=== PATIENT | female | born 1965 | race Caucasian/White ===

== ENCOUNTER → 2019-04-24 | Outpatient (CLI) | payer BC ==
[~2019-04-24] MED LIST: NO MEDS
[2019-04-24 17:01] LABS: BASOPHILS % 0.8 % (0.0-2.0); HEMATOCRIT. 35.8 % (36.0-48.0); HEMOGLOBIN. 12.4 g/dL (12.0-16.0); LYMPHOCYTES % 39.3 % (20.0-50.0); MEAN CORPUSCULAR HEMOGLOBIN 29.2 pg (28.0-32.0); MEAN CORPUSCULAR VOLUME 84.4 fL (81.0-99.0); MONOCYTES % 7.2 % (2.0-8.0); NEUTROPHILS % 50.7 % (40.0-76.0); PLATELET 268 x1000/uL (130-400); RED BLOOD CELL COUNT 4.24 mill/uL (4.2-5.4)
[2019-04-24 17:03] LABS: CHLORIDE 107 mEq/L (98-107)
[2019-04-24 17:12] LABS: LDL CHOLESTEROL 136 mg/dL (5-100)
[2019-04-24 17:14] LABS: HDL CHOLESTEROL 40 mg/dL (40-59); T4 FREE 0.89 ng/dL (0.76-1.46)
== END | disposition home or self-care (01) ==
LOC: LAB 16:04
PROVIDERS: ATTEND Pathology Anatomic Pathology & Clinical Pathology
DX: Z00.00 Encounter for general adult medical examination without abnormal findings (principal); Z13.220 Encounter for screening for lipoid disorders; Z13.29 Encounter for screening for other suspected endocrine disorder; Z13.0 Encounter for screening for diseases of the blood and blood-forming organs and certain disorders involving the immune mechanism
CPT/HCPCS: 36415; 80061; 83036; 84439; 84443

== ENCOUNTER → 2019-04-24 | Outpatient (CLI) | payer BC | END | disposition home or self-care (01) | LOC: RAD 17:18 | PROVIDERS: ATTEND Internal Medicine | DX: Z12.31 Encounter for screening mammogram for malignant neoplasm of breast (principal); R76.11 Nonspecific reaction to tuberculin skin test without active tuberculosis | CPT/HCPCS: 71045 ==

== ENCOUNTER → 2019-07-26 | Outpatient (CLI) | payer BC ==
[2019-07-26 14:09] LABS: BASOPHILS % 0.6 % (0.0-2.0); EOSINOPHILS % 2.5 % (0.0-5.0); HEMATOCRIT. 37.2 % (36.0-48.0); HEMOGLOBIN. 12.7 g/dL (12.0-16.0); LYMPHOCYTES % 37.5 % (20.0-50.0); MEAN CORPUSCULAR HEMOGLOBIN 28.6 pg (28.0-32.0); MEAN CORPUSCULAR VOLUME 83.9 fL (81.0-99.0); MEAN PLATELET VOLUME 8.4 fl (7.4-10.4); MONOCYTES % 5.2 % (2.0-8.0); NEUTROPHILS % 54.2 % (40.0-76.0); PLATELET 282 x1000/uL (130-400); RED BLOOD CELL COUNT 4.44 mill/uL (4.2-5.4); RED CELL DISTRIBUTION WIDTH 15.1 % (11.6-14.6)
[2019-07-26 14:13] LABS: CHLORIDE 110 mEq/L (98-107)
[2019-07-26 14:18] LABS: AMYLASE 99 IU/L (25-115)
== END | disposition home or self-care (01) ==
LOC: RAD 13:36
PROVIDERS: ATTEND Internal Medicine
DX: K80.20 Calculus of gallbladder without cholecystitis without obstruction (principal); E78.00 Pure hypercholesterolemia, unspecified; R73.03 Prediabetes
CPT/HCPCS: 36415; 82150

== ENCOUNTER → 2019-08-17 | Outpatient (CLI) | payer BC | END | disposition home or self-care (01) | LOC: US 10:20 | PROVIDERS: ATTEND Internal Medicine | DX: Z12.31 Encounter for screening mammogram for malignant neoplasm of breast (principal); K80.20 Calculus of gallbladder without cholecystitis without obstruction | CPT/HCPCS: 76700; 77067 ==

== ENCOUNTER → 2019-11-21 | Outpatient (CLI) | payer BC ==
[2019-11-21 10:22] LABS: BASOPHILS % 0.6 % (0.0-2.0); EOSINOPHILS % 2.2 % (0.0-5.0); HEMOGLOBIN. 11.9 g/dL (12.0-16.0); LYMPHOCYTES % 35.9 % (20.0-50.0); MEAN CORPUSCULAR HEMOGLOBIN 29.1 pg (28.0-32.0); MEAN CORPUSCULAR VOLUME 85.8 fL (81.0-99.0); MEAN PLATELET VOLUME 8.2 fl (7.4-10.4); MONOCYTES % 6.2 % (2.0-8.0); NEUTROPHILS % 55.1 % (40.0-76.0); PLATELET 254 x1000/uL (130-400); RED BLOOD CELL COUNT 4.09 mill/uL (4.2-5.4); RED CELL DISTRIBUTION WIDTH 14.9 % (11.6-14.6)
[2019-11-21 10:42] LABS: CHLORIDE 109 mEq/L (98-107)
[2019-11-21 10:48] LABS: AMYLASE 100 IU/L (25-115); GAMMA GLUTAMYL TRANSPEPTIDASE 18 IU/L (7-32)
[2019-11-21 10:49] LABS: LDL CHOLESTEROL 118 mg/dL (5-100)
[2019-11-21 10:50] LABS: HDL CHOLESTEROL 49 mg/dL (40-59)
[2019-11-21 10:52] LABS: T4 FREE 1.07 ng/dL (0.76-1.46)
== END | disposition home or self-care (01) ==
LOC: CT 09:56
PROVIDERS: ATTEND Internal Medicine Gastroenterology
DX: K85.90 Acute pancreatitis without necrosis or infection, unspecified (principal); K83.1 Obstruction of bile duct
CPT/HCPCS: 36415; 80053; 80061; 82150; 82977; 83036; 83615; 84439; 84443; 85025

== ENCOUNTER → 2019-11-28 | Outpatient (CLI) | payer BC ==
[~2019-11-28] MED LIST changes: +BARIUM SULFATE 450ML ORAL SUSP ONE; +IOHEXOL-300 100 ML BOTTLE ONE
== END | disposition home or self-care (01) ==
LOC: CT 09:06
PROVIDERS: ATTEND Internal Medicine Gastroenterology
DX: K82.8 Other specified diseases of gallbladder (principal); K85.90 Acute pancreatitis without necrosis or infection, unspecified
CPT/HCPCS: 74177; Q9967

== ENCOUNTER → 2020-10-10 | Outpatient (CLI) | payer BC ==
[~2020-10-10] MED LIST changes: -BARIUM SULFATE 450ML ORAL SUSP ONE; -IOHEXOL-300 100 ML BOTTLE ONE
== END | disposition home or self-care (01) ==
LOC: RAD 09:58
PROVIDERS: ATTEND Internal Medicine
DX: R06.02 Shortness of breath (principal)
CPT/HCPCS: 71045

== ENCOUNTER → 2021-02-04 | Outpatient (CLI) | payer BC ==
[2021-02-04 09:26] LABS: BASOPHILS % 0.8 % (0.0-2.0); EOSINOPHILS % 3.1 % (0.0-5.0); HEMATOCRIT. 35.6 % (36.0-48.0); HEMOGLOBIN. 12.3 g/dL (12.0-16.0); LYMPHOCYTES % 29.4 % (20.0-50.0); MEAN CORPUSCULAR HEMOGLOBIN 29.5 pg (28.0-32.0); MEAN CORPUSCULAR VOLUME 85.6 fL (81.0-99.0); MEAN PLATELET VOLUME 8.2 fl (7.4-10.4); MONOCYTES % 6.2 % (2.0-8.0); NEUTROPHILS % 60.5 % (40.0-76.0); PLATELET 276 x1000/uL (130-400); RED BLOOD CELL COUNT 4.16 mill/uL (4.2-5.4)
[2021-02-04 09:59] LABS: CHLORIDE 109 mEq/L (98-107)
[2021-02-04 10:03] LABS: GAMMA GLUTAMYL TRANSPEPTIDASE 20 IU/L (7-32)
[2021-02-04 10:04] LABS: AMYLASE 119 IU/L (25-115)
[2021-02-04 10:05] LABS: TOTAL IRON BINDING CAPACITY 418 ug/dL (250-450)
[2021-02-04 10:08] LABS: LDL CHOLESTEROL 122 mg/dL (5-100)
[2021-02-04 10:09] LABS: HDL CHOLESTEROL 55 mg/dL (40-59)
[2021-02-04 10:31] LABS: VITAMIN B12 SERUM 337 pg/mL (211-911)
[2021-02-04 11:49] LABS: FERRITIN 17 ng/mL (10-291)
[2021-02-05 09:09] LABS: FOLATE HEMATOCRIT 37.4 % (34.0-46.6)
[2021-02-05 13:07] LABS: FOLATE RBC 1131 ng/mL (>498)
== END | disposition home or self-care (01) ==
LOC: LAB 09:04
PROVIDERS: ATTEND Internal Medicine Gastroenterology
DX: K85.90 Acute pancreatitis without necrosis or infection, unspecified (principal)
CPT/HCPCS: 36415; 80053; 80061; 82150; 82607; 82728; 82747; 82977; 83036; 83540; 83550; 85014; 85025; 85044

== ENCOUNTER → 2021-02-05 | Outpatient (CLI) | payer BC | END | disposition home or self-care (01) | LOC: MRI 09:17 | PROVIDERS: ATTEND Internal Medicine Gastroenterology | DX: K76.0 Fatty (change of) liver, not elsewhere classified (principal); K80.20 Calculus of gallbladder without cholecystitis without obstruction; K85.90 Acute pancreatitis without necrosis or infection, unspecified | CPT/HCPCS: 74181 ==

== ENCOUNTER 2021-08-05 09:12 | Emergency (ER) | payer BC ==
[~2021-08-05] VITALS: Ht 152.4 cm; Wt 60.0 kg
[2021-08-05] MEDS ORDERED: ACETAMINOPHEN 325MG TABLET PO ONE (09:30)
[2021-08-05 10:36] LABS: BASOPHILS % 0.5 % (0.0-2.0); EOSINOPHILS % 3.8 % (0.0-5.0); HEMATOCRIT. 38.3 % (36.0-48.0); HEMOGLOBIN. 13.1 g/dL (12.0-16.0); LYMPHOCYTES % 36.1 % (20.0-50.0); MEAN CORPUSCULAR HEMOGLOBIN 29.8 pg (28.0-32.0); MEAN CORPUSCULAR VOLUME 86.9 fL (81.0-99.0); MEAN PLATELET VOLUME 8.6 fl (7.4-10.4); MONOCYTES % 7.4 % (2.0-8.0); NEUTROPHILS % 52.2 % (40.0-76.0); PLATELET 253 x1000/uL (130-400); RED BLOOD CELL COUNT 4.41 mill/uL (4.2-5.4)
[2021-08-05 10:42] LABS: CHLORIDE 108 mEq/L (98-107)
[2021-08-05 10:47] LABS: ETHANOL BLOOD < 10 mg/dL
[2021-08-05] MEDS ORDERED: ACET-2708 MT (15:29)
[2021-08-05 15:30] VITALS: BP 148/79
== END 2021-08-05 16:52 | disposition home or self-care (01) ==
LOC: ER 09:12 → CANBEDREQ 17:39
DX: R07.89 Other chest pain (principal); R51.9 Headache, unspecified; R06.00 Dyspnea, unspecified; Z88.5 Allergy status to narcotic agent
CPT/HCPCS: 36415; 70450; 71045; 78582; 80053; 80320; 83880; 84484; 85025; 85379; 93005; 99285; A9540; A9558; G0480

== ENCOUNTER → 2021-08-22 | Outpatient (CLI) | payer BC ==
[~2021-08-22] MED LIST changes: +ACET-2708 MT
== END | disposition home or self-care (01) ==
LOC: US 08:31
PROVIDERS: ATTEND Internal Medicine Gastroenterology
DX: K80.20 Calculus of gallbladder without cholecystitis without obstruction (principal); N32.89 Other specified disorders of bladder; K83.8 Other specified diseases of biliary tract
CPT/HCPCS: 76700

== ENCOUNTER → 2022-04-15 | Outpatient (CLI) | payer BC | END | disposition home or self-care (01) | LOC: US 08:57 | PROVIDERS: ATTEND Internal Medicine Gastroenterology | DX: K80.20 Calculus of gallbladder without cholecystitis without obstruction (principal); R10.84 Generalized abdominal pain | CPT/HCPCS: 36415; 76700; 80076; 82150; 82977; 86301 ==

== ENCOUNTER → 2023-05-04 | Outpatient (CLI) | payer BC | END | disposition home or self-care (01) | LOC: RAD 14:27 | PROVIDERS: ATTEND Internal Medicine | DX: Z01.818 Encounter for other preprocedural examination (principal); N20.0 Calculus of kidney | CPT/HCPCS: 71045 ==

== ENCOUNTER → 2023-05-04 | Outpatient (CLI) | payer BC ==
[2023-05-04 16:19] LABS: CLARITY URINE CLOUDY (CLEAR); COLOR URINE YELLOW (YELLOW); KETONES URINE NEGATIVE (NEGATIVE); LEUKOCYTE ESTERASE URINE NEGATIVE (NEGATIVE); NITRITE URINE NEGATIVE (NEGATIVE); OCCULT BLOOD URINE 2+ (NEGATIVE); PH URINE 7.5 (4.5-8.0); PROTEIN URINE NEGATIVE (NEGATIVE); SPECIFIC GRAVITY URINE 1.012 (1.005-1.030); UROBILINOGEN URINE 0.2 E.U./dL (0.2-1.0)
[2023-05-04 16:23] LABS: BASOPHILS % 0.6 % (0.0-2.0); EOSINOPHILS % 4.2 % (0.0-5.0); HEMATOCRIT. 34.4 % (36.0-48.0); HEMOGLOBIN. 11.9 g/dL (12.0-16.0); LYMPHOCYTES % 35.9 % (20.0-50.0); MEAN CORPUSCULAR VOLUME 87.1 fL (81.0-99.0); MEAN PLATELET VOLUME 8.2 fl (7.4-10.4); MONOCYTES % 6.7 % (2.0-8.0); NEUTROPHILS % 52.6 % (40.0-76.0); PLATELET 249 x1000/uL (130-400); RED BLOOD CELL COUNT 3.95 mill/uL (4.2-5.4); RED CELL DISTRIBUTION WIDTH 14.2 % (11.6-14.6)
[2023-05-04 16:24] LABS: PARTIAL THROMBOPLASTIN TIME 29.6 sec (23.4-31.0); PROTHROMBIN TIME 10.8 sec (9.6-11.0)
[2023-05-04 16:31] LABS: CHLORIDE 108 mEq/L (98-107)
== END | disposition home or self-care (01) ==
LOC: LAB 14:40
PROVIDERS: ATTEND Internal Medicine
DX: Z01.812 Encounter for preprocedural laboratory examination (principal); Z13.0 Encounter for screening for diseases of the blood and blood-forming organs and certain disorders involving the immune mechanism
CPT/HCPCS: 36415; 80053; 81003; 85025

== ENCOUNTER → 2023-05-13 | Day surgery (SDC) | payer BC ==
[~2023-05-13] VITALS: Ht 152.4 cm; Wt 64.4 kg
[~2023-05-13] MED LIST changes: +DIAZEPAM 5 MG TABLET PO NR; +FENTANYL CITRATE/PF 50MCG/ML 2ML VIAL ONE; +IODIXANOL 320 MG/ML 150ML BOTTLE IV ONE; +KETOROLAC 15MG/ML VIAL IV NR; +LACTATED RINGERS 1,000 ML IV SCH; +METOCLOPRAMIDE HCL 10MG/2ML VIAL IV NR; +MIDAZOLAM HCL 2 MG/2 ML VIAL ONE; +ONDANSETRON HCL 4MG/2ML INJ IV NR; +PROPOFOL 200MG/20ML VIAL IV ONE; +SCOPOLAMINE HYDROBROMIDE PATCH 72HR TD NR
[2023-05-13] MEDS: HYDROMORPHONE HCL/PF 2MG/ML CPJ IV PRN ×2 (16:03→16:51)
[2023-05-13 17:33] VITALS: BP 141/62; PULSE 60; RESP 15
== END | disposition home or self-care (01) ==
LOC: OR 12:07
PROVIDERS: ATTEND Specialist
DX: N13.2 Hydronephrosis with renal and ureteral calculous obstruction (principal); Z79.899 Other long term (current) drug therapy; Z98.890 Other specified postprocedural states; Z91.040 Latex allergy status; Z88.8 Allergy status to other drugs, medicaments and biological substances
CPT/HCPCS: 52353; J3010; J1885; J2765; J2250; J2405; J2704; J1170; C1769; Q9967

== ENCOUNTER → 2023-06-24 | Outpatient (CLI) | payer BC | END | disposition home or self-care (01) | LOC: MAMMO 10:03 | DX: Z12.31 Encounter for screening mammogram for malignant neoplasm of breast (principal); M81.8 Other osteoporosis without current pathological fracture; M85.852 Other specified disorders of bone density and structure, left thigh | CPT/HCPCS: 77067; 77080 ==

== ENCOUNTER → 2023-11-19 | Outpatient (CLI) | payer BC ==
[2023-11-19 10:54] LABS: ALANINE AMINOTRANSFERASE 19 IU/L (10-49); ALBUMIN 4.1 g/dL (3.2-4.8); ASPARTATE AMINOTRANSFERASE 22 IU/L (<34); BILIRUBIN TOTAL 1.1 mg/dL (0.1-1.0); CALCIUM 9.7 mg/dL (8.7-10.4); CARBON DIOXIDE 26 mEq/L (21-32); CHLORIDE 108 mEq/L (98-107); CREATININE 0.5 mg/dL (0.6-1.0); GLUCOSE 96 mg/dL (70-105); POTASSIUM 3.8 mEq/L (3.5-5.1); PROTEIN TOTAL 7.2 g/dL (6.0-8.3); SODIUM 139 mEq/L (136-145); UREA NITROGEN BLOOD 11 mg/dL (9-23)
== END | disposition home or self-care (01) ==
LOC: CT 09:37
PROVIDERS: ATTEND Specialist
DX: N13.2 Hydronephrosis with renal and ureteral calculous obstruction (principal); M47.817 Spondylosis without myelopathy or radiculopathy, lumbosacral region; M25.78 Osteophyte, vertebrae; K80.20 Calculus of gallbladder without cholecystitis without obstruction
CPT/HCPCS: 36415; 74176; 80053

== ENCOUNTER → 2024-05-31 | Day surgery (SDC) | payer BC ==
[~2024-05-31] VITALS: Ht 152.4 cm; Wt 62.1 kg
[~2024-05-31] MED LIST changes: -ACET-2708 MT; +CHOL-9 PO; +CHOL500010 PO; -DIAZEPAM 5 MG TABLET PO NR; -FENTANYL CITRATE/PF 50MCG/ML 2ML VIAL ONE; -IODIXANOL 320 MG/ML 150ML BOTTLE IV ONE; -KETOROLAC 15MG/ML VIAL IV NR; -LACTATED RINGERS 1,000 ML IV SCH; +LIDOCAINE HCL/PF 1% 10 MG/ML 5ML VIAL ONE; -METOCLOPRAMIDE HCL 10MG/2ML VIAL IV NR; -NO MEDS; -ONDANSETRON HCL 4MG/2ML INJ IV NR; -SCOPOLAMINE HYDROBROMIDE PATCH 72HR TD NR
[2024-05-31] MEDS: LACTATED RINGERS 1,000 ML IV SCH (11:19)
== END | disposition home or self-care (01) ==
LOC: OR 09:34
PROVIDERS: ATTEND Specialist
DX: N20.0 Calculus of kidney (principal); Z53.8 Procedure and treatment not carried out for other reasons; Z79.899 Other long term (current) drug therapy; Z91.040 Latex allergy status; Z88.8 Allergy status to other drugs, medicaments and biological substances
CPT/HCPCS: 93005; J3490; J2250; J2704; 82360; 88300